=== PATIENT | female | born 1970 | race Caucasian/White ===

== ENCOUNTER 2018-12-30 09:49 | Emergency (ER) | payer BC ==
--- OUTSIDE RECORDS SUMMARY | 2018-12-30 10:34 | XMS REPORT | Continuity of Care Document ---
:1970 External Reference #:[id number] Author Name Adeline Diaz PA Address [address] [place] [id number] Care Team Providers Name Role Phone Oh, In MD Velma - Obstetrics & Care Team Information [employer] [phone] Gynecology Diamond Vu - Gastroenterology Care Team Information [employer] Problems Active Problems Provider Date Vitamin D deficiency Steffi Kasper MD Onset: 11/15/2012 Allergic asthma without status asthmaticus Steffi Kasper MD Onset: 2012 Midline cystocele Steffi Kasper MD Onset: 10/12/2010 Vulval varices Steffi Kasper MD Onset: 10/12/2010 Herniation of rectum into vagina Steffi Kasper MD Onset: 10/12/2010 Family history of endocrine disorders Steffi Kasper MD Onset: 08/08/2010 Family history of malignant neoplasm of Steffi Kasper MD Onset: 2010 gastrointestinal tract Hypothyroidism Steffi Kasper MD Onset: 08/05/2015 Benign neoplasm of colon Steffi Kasper MD Onset: 08/16/2018 Mild intermittent asthma Steffi Kasper MD Onset: 08/16/2018 FH: Diabetes mellitus Steffi Kasper MD Onset: 08/16/2018 Social History Type Date Description Comments Sex Unknown ETOH Use Denies alcohol use Tobacco Use Start: Unknown Patient has never smoked Recreational Drug Use Denies Drug Use Exercise Type/Frequency Exercises regularly Exercises regularly, aerobics, walking, 30min x 3-4 days per week, counselled 150min per week 10k steps per day 07/31/14 ; 08/05/16 counselled 150min per week 37297 steps per day [facility] Allergies, Adverse Reactions, Alerts Active Allergies Reaction Severity Comments Date Augmentin 07/31/2014 Bactrim 07/31/2014 Medications Active Medications SIG Qnty Indications Ordering Date Provider Albuterol Sulfate HFA 2 puffs every 4-6 17gm Kapil Shetty, 11/17/2018 hours as needed DO 108(90Base) mcg/Act for cough, Aerosol wheezing, shortness of breath Levothyroxine Sodium 1 by mouth every 90tabs E03.9 Majo, 04/08/2017 day MD Steffi 112mcg Tablets Vitamin D 1 po qd with E55.9 Majo, 08/12/2010 (Cholecalciferol) main meal with MD Steffi meat fat oil 1000Unit Tablets Medications Administered in Office Medication SIG Qnty Indications Ordering Provider Date Steffi Padilla MD 08/16/2018 Injection Steffi Padilla MD 08/08/2017 Injection Steffi Padilla MD 08/05/2016 Injection Steffi Padilla MD 08/05/2015 Injection Steffi Padilla MD 07/31/2014 Injection Steffi Padilla MD 07/31/2014 Injection Immunizations CPT Code Status Date Vaccine Reaction Lot # [id number] Given 12/25/2017 Flu Vaccine NOS Q2036 Given 10/27/2016 Flulaval Immunization [facility] [id number] Given 01/12/2016 Influenza Virus Vaccine,Quadrivalent,Split,Preserv Free, 0.5mL,[place] [address] Given 12/05/2014 Influenza Virus Vaccine,Quadrivalent,Split,Preserv Free, 0.5mL,Im [address] Given 11/15/2012 Pneumococcal 23 Immunization Adult Or Immunosuppressed Patient 5[address] Given 11/15/2012 Tdap (Adacel) Ages 7 And Above Only 42584 Given 01/26/2005 Afluria Or Fluvirin Flu Vac Intramuscular 83729 Given 01/26/2005 Afluria Or Fluvirin Flu Vac Intramuscular 69200 Given 10/28/2003 Immunization Td 7 Yrs Or Older 61476 Refused 06/04/2014 Influenza Virus Vaccine,Quadrivalent,Split,Preserv Free, 0.5mL,Im Vital Signs Date Vital Result Comment 11/17/2018 11:07am Body Temperature 99.3 F Weight 195.00 lb Heart Rate 68 /min BP Systolic 110 mmHg BP Diastolic 70 mmHg Respiratory Rate 18 /min Height 64.5 inches 5'4.50" [facility] 08/16/18 BMI (Body Mass Index) 33.0 kg/m2 08/16/2018 9:55am Weight 195.25 lb Heart Rate 76 /min BP Systolic 128 mmHg BP Diastolic 76 mmHg Respiratory Rate 16 /min Height 64.5 inches 5'4.50" [facility] 08/16/18 BMI (Body Mass Index) 33.0 kg/m2 Results Test Date Facility Test Result H/L Range Note Laboratory test finding 11/17/2018 [facility] <pending> CRP (C-Reactive) <pending> TSH <pending> Laboratory test finding 08/16/2018 [facility] TSH 2.41 uIU/mL 0.35-4.94 1 Comprehensive Met [facility] 08/16/2018 [facility] Sodium 139 mmol/L 135- 146 2 Potassium 4.3 mmol/L 3.5-5.2 Chloride# 103 mmol/L 97-110 3 Carbon Dioxide 28 mmol/L 24-34 Calcium 9.8 mg/dL 8.5-10.5 4 Glucose 117 mg/dL High 70-105 BUN 23 mg/dL 6-26 Creatinine 0.9 mg/dL 0.5-1.4 Total Protein 7.0 g/dL 6.0-8.0 Albumin 4.6 g/dL 3.6-4.9 Globulin 2.4 g/dL 2.0-3.5 A/G Ratio 1.9 Ratio 1.0-2.2 Total Bilirubin 0.5 mg/dL 0.1-1.3 Alkaline Phosphatase 67 U/L 24-140 Alt 48 U/L High 3-42 Ast 24 U/L 8-42 Anion Gap 8 mmol/L 5-15 5 Female Egfr 74 >60 6 Male Egfr 98 >60 7 Lipid 08/16/2018 [facility] Cholesterol 214 mg/dL High 50-199 Triglycerides 282 mg/dL High 30-200 HDL 46 mg/dL 35-85 8 Chol/ HDL Ratio 4.7 ratio 3.7-5.6 VLDL 56 mg/dL High 2-29 LDL (Calc) 112 mg/dL High 20-99 9 Celiac Disease Panel 08/16/2018 [facility] Celikey (tTG) IgA Negative Negative Celikey (tTG) IgG Negative Negative deamidated Gliadin IgA Negative Negative deamidated Gliadin IgG Negative Negative 1 ff bfast at 7, missed some doses, would cont same and recehck in 3 mo if o 2 Updated reference range on new analyzer 3 Updated reference range on new analyzer 4 Updated reference range 07-05-2018 5 Updated Reference Range 6 Concerning GFR Guidelines for Americans: Normal function or mild renal disease, if clinically at risk: >/= 60 mL/min Moderately decreased: 30-59 Severely decreased: 15-29 Renal failure: <15 There is reduced accuracy above 60ml/min/1.73 m squared, but the numeric value may be clinically useful in the near 60 range 7 Concerning GFR Guidelines: Normal function or mild renal disease, if clinically at risk: >/= 60 mL/min Moderately decreased: 30-59 Severely decreased: 15-29 Renal failure: <15 There is reduced accuracy above 60ml/min/1.73 m squared, but the numeric value may be clinically useful in the near 60 range Glomerular Filtration Rate (GFR) is estimated based on the CKD-EPI equation, which assumes a steady state for creatinine as recommended by the National Kidney Disease Education Program in conjunction with the National Institutes of Health and the National Kidney Foundation. Clinical conditions in which it may be necessary to measure GFR by using clearance methods include extremes of age and body size, severe malnutrition or obesity, diseases of skeletal muscle, paraplegia or quadriplegia, vegetarian diet, rapidly changing kidney function, and calculation of the dose of potentially toxic drugs that are excreted by the kidneys. 8 Per NCEP ATP III Guidelines: Results lower than 40 mg/dL are suggestive of increased risk for coronary artery disease. Results > or = to 60 mg/dL are considered a negative risk factor. 9 Per NCEP ATP III Guidelines: Normal Population <130 Patients with medical conditions: CHD/DM Optimal: <100 Borderline high: 130-159 High: 160-189 Very high: >189 Procedures Date Code Description Status 10/19/2017 [id number] Mammogram Completed 10/05/2016 [id number] Colonoscopy Completed 07/31/2014 [id number] Mammogram Completed Medical Devices Description No Information Available Encounters Type Date Location Provider Dx Diagnosis Office Visit 08/18/2018 [facility] Schedule, Nurses Z11.1 Encounter for screening 11:00a for respiratory tuberculosis Office Visit 08/16/2018 [facility] Steffi Kasper, M72.2 Plantar fascial 9:30a fibrommilady Z00.01 Encounter for general adult medical exam w abnormal findings Z11.1 Encounter for screening for respiratory tuberculosis E03.9 Hypothyroidism, unspecified Z80.0 Family history of malignant neoplasm of digestive organs Z83.3 Family history of diabetes mellitus J45.20 Mild intermittent asthma, uncomplicated Z12.31 Encntr screen mammogram for malignant neoplasm of breast K63.5 Polyp of colon Z13.89 Encounter for screening for other disorder E66.9 Obesity, unspecified Z13.31 Encounter for screening for depression R19.7 Diarrhea, unspecified Z68.33 Body mass index (BMI) 33.0-33.9, adult Assessments Date Code Description Provider 11/17/2018 M25.521 Pain in RIGHT elbow Adeline Diaz PA 11/17/2018 Z68.33 Body mass index (BMI) 33.0-33.9, adult Adeline Diaz PA 11/17/2018 M25.521 Pain in RIGHT elbow Schedule, Laboratory 08/18/2018 Z11.1 Encounter for screening for respiratory Steffi Kasper MD tuberculosis 08/18/2018 Z11.1 Encounter for screening for respiratory Schedule, Nurses tuberculosis 08/16/2018 E03.9 Hypothyroidism, unspecified Steffi Kasper MD 08/16/2018 M72.2 Plantar fascial fibromatosis Steffi Kasper MD 08/16/2018 Z83.3 Family history of diabetes mellitus Steffi Kasper MD 08/16/2018 Z00.01 Encounter for general adult medical Steffi Kaspre MD examination with abnorma 08/16/2018 Z11.1 Encounter for screening for respiratory Steffi Kasper MD tuberculosis 08/16/2018 Z11.1 Encounter for screening for respiratory Steffi Kasper MD tuberculosis 08/16/2018 R19.7 Diarrhea, unspecified Steffi Kasper MD 08/16/2018 E03.9 Hypothyroidism, tashaified Steffi Kasper MD 08/16/2018 Z80.0 Family history of malignant neoplasm of Steffi Kasper MD digestive organs 08/16/2018 Z83.3 Family history of diabetes mellitus Steffi Kasper MD 08/16/2018 J45.20 Mild intermittent asthma, uncomplicated Steffi Kasper MD 08/16/2018 Z12.31 Encounter for screening mammogram for Steffi Kasper MD malignant neoplasm of 08/16/2018 K63.5 Polyp of colon Steffi Kasper MD 08/16/2018 Z13.89 Encounter for screening for other disorder Steffi Kasper MD 08/16/2018 E66.9 Obesity, unspecified Steffi Kasper MD 08/16/2018 Z13.31 Encounter for screening for depression Steffi Kasper MD 08/16/2018 R19.7 Diarrhea, unspecified Steffi Kasper MD 08/16/2018 Z68.33 Body mass index (BMI) 33.0-33.9, adult Steffi Kasper MD 08/16/2018 E03.9 Hypothyroidism, unspecified Schedule, Laboratory 08/16/2018 Z83.3 Family history of diabetes mellitus Schedule, Laboratory 08/16/2018 Z11.1 Encounter for screening for respiratory Schedule, Laboratory tuberculosis 08/16/2018 R19.7 Diarrhea, unspecified Schedule, Laboratory 08/16/2018 E03.9 Hypothyroidism, unspecified [facility] 08/16/2018 Z83.3 Family history of diabetes mellitus [facility] 08/16/2018 Z11.1 Encounter for screening for respiratory [facility] tuberculosis 08/16/2018 R19.7 Diarrhea, unspecified [facility] Plan of Treatment Future Appointment(s):08/20/2019 9:30 am - Steffi Kasper MD at [facility]2018 - Adeline Diaz, [id number] Pain in RIGHT elbowNew Xrays:Elbow, Two Views , RT Limited, Scheduled: 11/17/18Comments:Will check labs and xray for eval and treat accordinglyIf normal, suggest PT, consider ortho referralIce, ibuprofenCall with questions/concernsFollow up:PrnZ68.33 Body mass index (BMI) 33.0-33.9, adult Functional Status Description No Information Available Mental Status Description No Information Available Referrals Description No Information Available
[2018-12-30 10:43] VITALS: BP 119/92
--- NOTE | 2018-12-30 11:08 | UC ---
Throat Pain/Nasal Richard HPI - HPI Summary HPI Summary: 48 yo with 4 week history of sinus congestion, drainage and cough, which she has been managing with supportive care. Presents today because of increased sinus pain, fatigue, and chest tightness. She uses albuterol as needed, but not more than once per day. No fever. Hx of deviated septum. - History of Current Complaint Chief Complaint: UCGeneralIllness Stated Complaint: SINUS Time Seen by Provider: 12/30/18 11:04 Hx Obtained From: Patient Hx Last Menstrual Period: ablation Onset/Duration: Gradual Onset, Lasting Weeks - 4 Severity: Moderate Pain Intensity: 0 Cough: Sputum Appears - clear Associated Signs & Symptoms: Positive: Sinus Discomfort, Nasal Discharge - Epiglottits Risk Factors Epiglottis Risk Factors: Negative - Allergies/Home Medications Allergies/Adverse Reactions: Allergies Allergy/AdvReac Type Severity Reaction Status Date / Time amoxicillin [From Augmentin] Allergy Hives Verified 12/30/18 10:46 clavulanic acid Allergy Hives Verified 12/30/18 10:46 [From Augmentin] sulfamethoxazole Allergy Hives Verified 12/30/18 10:46 [From Bactrim] trimethoprim [From Bactrim] Allergy Hives Verified 12/30/18 10:46 jewelry metals Allergy Rash Uncoded 06/07/15 17:01 PMH/Surg Hx/FS Hx/Imm Hx Previously Healthy: Yes Endocrine History: Hypothyroidism Respiratory History: Asthma - mild, usually with respiratory illnesses. - Surgical History Surgical History: Yes Surgery Procedure, Year, and Place: Uterine ablation. Tonsilectomy. "couple minor procedures" - Family History Known Family History: Positive: None, Non-Contributory - Social History Occupation: Employed Full-time Alcohol Use: None Substance Use Type: None Smoking Status (MU): Never Smoked Tobacco - Immunization History Most Recent Influenza Vaccination: 2322-1231 Review of Systems All Other Systems Reviewed And Are Negative: Yes Constitutional: Positive: Fatigue Skin: Positive: Negative Eyes: Positive: Negative ENT: Positive: Sore Throat, Sinus Congestion, Sinus Pain/Tenderness, Other - hx of deviated septum Respiratory: Positive: Cough. Negative: Shortness Of Breath Cardiovascular: Positive: Negative Gastrointestinal: Positive: Negative Genitourinary: Positive: Negative Motor: Positive: Negative Neurovascular: Positive: Negative Musculoskeletal: Positive: Negative Neurological: Positive: Headache Psychological: Positive: Negative Is Patient Immunocompromised?: No Physical Exam Triage Information Reviewed: Yes Appearance: Ill-Appearing - congested, looks mildly unwell. Vital Signs: Initial Vital Signs Temp 99 F 12/30/18 10:38 Pulse 81 12/30/18 10:38 Resp 16 12/30/18 10:38 BP 119/92 12/30/18 10:38 Pulse Ox 99 12/30/18 10:38 Eyes: Positive: Conjunctiva Clear ENT: Positive: Pharyngeal erythema, TMs normal, Sinus tenderness - right maxillary, Other - past tonsillectomy Neck: Positive: Supple, Nontender, No Lymphadenopathy Respiratory: Positive: Lungs clear, Normal breath sounds Cardiovascular: Positive: RRR, No Murmur Musculoskeletal Exam: Normal Neurological Exam: Normal Psychological Exam: Normal Skin Exam: Normal Throat Pain/Nasal Course/Dx - Course Course Of Treatment: doxycycline for treatment of sinusitis. Prednisone course to decrease cough. - Differential Dx/Diagnosis Differential Diagnosis/HQI/PQRI: Laryngitis, Pharyngitis, Sinusitis, URI Provider Diagnosis: Right maxillary sinusitis Discharge ED - Sign-Out/Discharge Documenting (check all that apply): Patient Departure All imaging exams completed and their final reports reviewed: No Studies - Discharge Plan Condition: Good Disposition: HOME Prescriptions: DOXYcycline CAP(*) [DOXYcycline 100MG CAP(*)] 100 mg PO BID #20 cap predniSONE [Prednisone 20 MG TAB] 2 tab PO DAILY #10 tablet Patient Education Materials: Sinusitis (ED) Referrals: Steffi Kasper MD [Primary Care Provider] - Additional Instructions: Begin doxycycline for treatment of sinusitis, and use prednisone 40mg daily to decrease inflammation and persistent cough. Ensure that you take the prednsone with food. Doxycycline can be taken with food, but not within 2 hours of dairy products. - Billing Disposition and Condition Condition: GOOD Disposition: Home
== END 2018-12-30 11:38 | disposition home or self-care (01) ==
LOC: UCCORT 09:49
DX: J32.0 Chronic maxillary sinusitis (principal); J45.909 Unspecified asthma, uncomplicated; Z88.0 Allergy status to penicillin; Z88.8 Allergy status to other drugs, medicaments and biological substances
CPT/HCPCS: 99212; G0463